=== PATIENT | male | born 1985 | race Caucasian/White ===

== ENCOUNTER → 2022-11-12 13:10 | Outpatient (CLI) | payer OTHER, SELFPAY ==
--- NOTE | 2022-11-12 13:13 | DI.RAD.S_ITS ---
PROCEDURE: FL SHOULDER INJECTION MR/CT LT INDICATIONS: PAIN IN LEFT SHOULDER COMPARISON: None. TECHNIQUE: The indications, alternatives, benefits, risks, and complications of the procedure were explained to the patient. Written informed consent was obtained and placed in the chart. The shoulder was examined fluoroscopically and a site for needle placement chosen for entry into the glenohumeral joint from an anterior approach. The skin was prepped and draped in a sterile fashion, and 1% lidocaine infiltrated from skin down to joint capsule. A spinal needle was inserted into the glenohumeral joint, and a small amount of iodinated contrast media injected to confirm intra-articular placement of the needle tip. This was followed by approximately 12 mL dilute solution of a gadolinium containing MR contrast agent. The needle was removed and a dressing was applied. The patient was given postprocedural instructions and sent to the MR suite for MR imaging. FINDINGS: A single fluoroscopic spot image demonstrates intra-articular location of injected iodinated contrast. IMPRESSION: Successful fluoroscopically guided administration of dilute Gadolinium solution into the shoulder joint for MR arthrogram. Dictated by: Vernon Mckeon M.D. on 11/12/2022 at 16:29 Approved by: Vernon Mckeon M.D. on 11/12/2022 at 16:29
--- NOTE | 2022-11-12 13:14 | DI.MRI.S_ITS ---
PROCEDURE: MR SHOULDER LT W CON INDICATIONS: PAIN IN LEFT SHOULDER TECHNIQUE: After the administration of 12 mL of dilute intra-articular Gadolinium contrast, oblique coronal T1 and T2 spin echo with fat saturation, oblique sagittal T1 spin echo with and without fat saturation, oblique sagittal T2 fast spin echo with fat saturation, axial T1 spin echo with fat saturation through the shoulder. COMPARISON: None. FINDINGS: Image quality: Excellent. Rotator cuff: Low to moderate grade articular and bursal surface partial thickness tear involving distal supraspinatus at its insertion on the humeral head is seen extending to musculotendinous junction. Distal infraspinatus tendinosis is noted. Distal subscapularis tendinosis is also seen. No full-thickness rotator cuff tendon rupture. N mild supraspinatus muscle atrophy is seen on sagittal images. Bones and bursae: No bone marrow contusions or fractures. Mild to moderate acromioclavicular joint osteoarthritic changes are seen with joint space narrowing, subchondral sclerosis and downward osteophyte formation depressing the musculotendinous junction of supraspinatus. The acromion demonstrates conventional anatomy, without an os acromiale. Mild to moderate glenohumeral joint osteoarthritic changes also seen. Capsule and soft tissues: There is signal abnormality, contour irregularity and contrast extension in anterior inferior labrum at 4 to 6 o'clock position suggestive of anterior-inferior labral tear. The glenohumeral ligaments are grossly intact. The long head of the biceps tendon demonstrates normal location and morphology. The rotator interval appears normal, without fibrosis. The coracohumeral ligament is of normal thickness. No intra-articular bodies. IMPRESSION: 1. Finding is suggestive of anterior-inferior labral tear at 4 to 6 o'clock position. 2. Low to moderate grade articular and bursal surface partial thickness tear involving distal supraspinatus extending to musculotendinous junction. Mild supraspinatus muscle atrophy. 3. Distal infraspinatus and subscapularis tendinosis. No full-thickness rotator cuff tendon rupture. 4. [id number] acromioclavicular joint and glenohumeral joint osteoarthritis. No fracture or dislocation. No gross loose bodies. Dictated by: Drew Mata M.D. on 11/12/2022 at 16:07 Approved by: Drew Mata M.D. on 11/12/2022 at 16:15
== END ==
PROVIDERS: Referring Provider Orthopaedic Surgery; Visit Provider Orthopaedic Surgery
DX: M75.112 Incomplete rotator cuff tear or rupture of left shoulder, not specified as traumatic (principal); M19.012 Primary osteoarthritis, left shoulder; M25.512 Pain in left shoulder
CPT/HCPCS: 23350; 73222

== ENCOUNTER → 2025-02-05 12:00 | Outpatient (CLI) | payer OTHER, SELFPAY ==
--- NOTE | 2025-02-05 12:02 | DI.MRI.S_ITS ---
PROCEDURE: MR KNEE LT WO CON INDICATIONS: LEFT KNEE PAIN TECHNIQUE: Noncontrast sagittal PD fast spin echo and T2 fast spin echo with fat saturation, sagittal 3-D FLASH with fat saturation; coronal T1 spin echo and PD fast spin echo with fat saturation, and axial PD fast spin echo with fat saturation through the knee. COMPARISON: None. FINDINGS: Image quality: Excellent. Bones: The bone marrow signal is normal. There is no acute fracture or dislocation. Joints: There is a small knee joint effusion with synovial proliferation. There is no significant knee osteoarthritis. Nix's cyst: Small Nix's cyst measuring 6.1 cm in maximal dimension (08/16), with internal debris. Menisci: The medial meniscus is normal. There is a small horizontal tear along the outer periphery of the lateral meniscal body (; 09/05). The posterior root attachments are normal. Cruciate ligaments: The anterior cruciate ligament is normal. The posterior cruciate ligament is normal. Collateral ligaments: The medial collateral ligament complex is normal. The lateral collateral ligament complex is normal. Popliteus Muscle/Tendon: The popliteus muscle and tendon are normal. Extensor mechanism: The quadriceps tendon is normal. The patellar tendon is normal. The medial and lateral patellar retinacular attachments are normal. Articular cartilage: There is no significant articular cartilage defect. Other: No other acute findings. IMPRESSION: 1. Small horizontal tear along the outer periphery of the lateral meniscal body. No extrusion or large parameniscal cyst formation. 2. Small joint effusion and Nix's cyst with synovitis. Dictated by: Man Wang M.D. on 02/05/2025 at 15:46 Approved by: Man Wang M.D. on 02/05/2025 at 16:03
== END ==
PROVIDERS: Referring Provider Nurse Practitioner Family; Visit Provider Nurse Practitioner Family
DX: S83.262A Peripheral tear of lateral meniscus, current injury, left knee, initial encounter (principal); M25.462 Effusion, left knee; M25.562 Pain in left knee; M71.22 Synovial cyst of popliteal space [Baker], left knee
CPT/HCPCS: 73721